=== PATIENT | female | born 1960 | race Caucasian/White ===

== ENCOUNTER → 2016-12-17 | Outpatient (REF) | payer BC, OTHER | LOC: M LAB REF 17:24 | PROVIDERS: ATTEND Nurse Practitioner Adult Health | DX: R50.9 Fever, unspecified (principal) ==

== ENCOUNTER → 2017-10-21 | Outpatient (REF) | payer OTHER ==
[2017-10-23 08:14] LABS: LDL DIRECT 138 mg/dL (0-99)
== END ==
LOC: M LAB REF 16:35
DX: E78.1 Pure hyperglyceridemia (principal)